=== PATIENT | female | born 1960 | race Caucasian/White ===

== ENCOUNTER → 2025-02-13 12:14 | Outpatient (REF) | payer OTHER, SELFPAY | LOC: HWWDC 12:14 | PROVIDERS: ATTENDING PHYSICIAN Family Medicine | DX: Z12.31 Encounter for screening mammogram for malignant neoplasm of breast (principal) | CPT/HCPCS: 77063; 77067 ==

== ENCOUNTER 2025-04-17 06:36 | Day surgery (SDC) | payer OTHER, SELFPAY | END 2025-04-17 12:13 | disposition home or self-care (01) | LOC: GI 06:36 | PROVIDERS: ATTENDING PHYSICIAN Internal Medicine; FAMILY PHYSICIAN Family Medicine | DX: Z12.11 Encounter for screening for malignant neoplasm of colon (principal); K57.30 Diverticulosis of large intestine without perforation or abscess without bleeding; K64.9 Unspecified hemorrhoids; K63.5 Polyp of colon; Z83.719 Family history of colon polyps, unspecified; Z86.0101 Personal history of adenomatous and serrated colon polyps | CPT/HCPCS: 45385; 45380; 88305 ==